=== PATIENT | female | born 1980 | race American Indian/Alaskan Native ===

== ENCOUNTER 2016-12-28 11:23 | Outpatient (CLI) | payer BC ==
--- NOTE | 2016-12-28 11:57 | XRay Report ---
CERVICAL SPINE RADIOGRAPHS INDICATION: Cervical radiculopathy. COMPARISON: None similar. FINDINGS: AP, lateral, oblique, open mouth and flexion and extension views of the cervical spine demonstrate unremarkable dens with symmetric lateral masses. Few small radiopaque dental fillings. Intact craniocervical articulation, predental space and prevertebral soft tissues. Normal airway. Visualization upto C7-T1 disc. Straightening, possibly positional versus scoliosis. Mild C4-C6 anteroinferior degenerative spurring. Uniform disc heights. No subluxation. No significant neural foraminal narrowing. Clear visualized lung apices. CONCLUSION: Mild cervical spine degenerative changes and straightening without acute radiographic abnormality. Thank you for the opportunity to participate in this patient's care.
== END 2016-12-28 11:24 | disposition home or self-care (01) ==
LOC: SPVIMAG 11:23
PROVIDERS: ATTEND Internal Medicine
DX: M47.22 Other spondylosis with radiculopathy, cervical region (principal)
CPT/HCPCS: 72052